=== PATIENT | male | born 1995 | race American Indian/Alaskan Native ===

== ENCOUNTER 2017-08-07 04:51 | Emergency (ER) | payer MEDICAID, OTHER ==
[2017-08-07 05:06] VITALS: RESP 18
[2017-08-07] MEDS ORDERED: TraMADol/Apap 37.5/325 mg Tab PO STA (05:29)
--- NOTE | 2017-08-07 05:31 | ED PDOC ---
Arrival/HPI - General Chief Complaint: Dental Pain Time Seen by Provider: 08/07/17 05:15 Historian: Patient - History of Present Illness Narrative History of Present Illness (Text): 08/07/17 05:28 Patient is a 21 year old male who presents to the Emergency department complaining of left-sided dental pain. Patient reports he is scheduled for a tooth extraction on 08/11/17 but yesterday morning his dental pain worsened making it difficult for him to close his mouth or sleep. Patient denies fevers, chills, shortness of breath, nausea, vomiting, diarrhea, headache, dizziness, back pain, neck pain, or any other complaint. Time/Duration: Other (Yesterday morning) Symptom Course: Worsening Quality: Aching Context: Home Past Medical History - Provider Review Nursing Documentation Reviewed: Yes - Psychiatric Hx Substance Use: No Family/Social History - Physician Review Nursing Documentation Reviewed: Yes Family/Social History: No Known Family HX Smoking Status: Never Smoked Hx Alcohol Use: No Hx Substance Use: No Allergies/Home Meds Allergies/Adverse Reactions: Allergies No Known Allergies Allergy (Verified 08/07/17 05:01) Review of Systems - Physician Review All systems were reviewed & negative as marked: Yes - Review of Systems Constitutional: absent: Fevers, Night Sweats ENT: Other (Left tooth pain) Respiratory: absent: SOB, Cough Cardiovascular: absent: Chest Pain, [place]STE[place] Gastrointestinal: absent: Abdominal Pain, Diarrhea, Nausea, Vomiting Musculoskeletal: absent: Back Pain, Neck Pain Physical Exam Vital Signs Reviewed: Yes Vital Signs Temp Pulse Resp BP Pulse Ox 08/07/17 06:09 97.6 F 58 L 18 120/58 L 98 08/07/17 05:02 97.8 F 56 L 18 124/62 97 Temperature: Afebrile Blood Pressure: Normal Pulse: Regular Respiratory Rate: Normal Appearance: Positive for: Well-Appearing Mental Status: Positive for: Alert and Oriented X 3 - Systems Exam Head: Present: Atraumatic, Normocephalic Pupils: Present: PERRL Extroacular Muscles: Present: EOMI Conjunctiva: Present: Normal Mouth: Present: Moist Mucous Membranes. No: Normal Teeth (Impacted left lower wisdom tooth) Neck: Present: Normal Range of Motion Respiratory/Chest: Present: Clear to Auscultation, Good Air Exchange. No: Respiratory Distress, Accessory Muscle Use Cardiovascular: Present: Regular Rate and Rhythm, Normal S1, S2. No: Murmurs Abdomen: No: Tenderness, Distention, Peritoneal Signs Back: Present: Normal Inspection Upper Extremity: Present: Normal Inspection. No: Cyanosis, Edema Lower Extremity: Present: Normal Inspection. No: Edema Neurological: Present: GCS=15, CN II-XII Intact, Speech Normal Skin: Present: Warm, Dry, Normal Color. No: Rashes Psychiatric: Present: Alert, Oriented x 3, Normal Insight, Normal Concentration Medical Decision Making ED Course and Treatment: 08/07/17 05:33 Impression: Patient is a 21 year old male with left tooth pain. Differential Diagnosis included but are not limited to: impacted left 3rd lower tooth. Plan: -- Ultracet -- Amoxil -- Reassess and disposition Progress Notes: - Medication Orders Current Medication Orders: Discontinued Medications Amoxicillin (Amoxil 500 Mg Cap) 500 mg PO STAT STA PRN Reason: Protocol Stop: 08/07/17 05:30 Last Admin: 08/07/17 05:43 Dose: 500 mg Tramadol/Acetaminophen (Ultracet 37.5/325 Mg) 1 tab PO ONCE STA Stop: 08/07/17 05:30 Last Admin: 08/07/17 05:45 Dose: 1 tab MAR Pain Assessment Document 08/07/17 05:45 VINNIE (Rec: 08/07/17 05:46 [id number]) Pain Reassessment Is this a pain reassessment? Yes Sleep Is patient sleeping during reassessment? No Presence of Pain Presence of Pain Yes Pain Scale Used Pain Scale Used Numeric Location Left, Right or Bilateral Left Upper or Lower Lower Description Description Constant Intensity of Pain at present 5 Pain Behavior Rubbing Site Aggravating Factors Contant - Scribe Statement The provider has reviewed the documentation as recorded by the Scribe Wade Stacy [employer] Under Kavitha Rios Provider Scribe Attestation: All medical record entries made by the Scribe were at my direction and personally dictated by me. I have reviewed the chart and agree that the record accurately reflects my personal performance of the history, physical exam, medical decision making, and the department course for this patient. I have also personally directed, reviewed, and agree with the discharge instructions and disposition. Disposition/Present on Arrival - Present on Arrival Any Indicators Present on Arrival: No History of DVT/PE: No History of Uncontrolled Diabetes: No Urinary Catheter: No History of Decub. Ulcer: No History Surgical Site Infection Following: None - Disposition Have Diagnosis and Disposition been Completed?: Yes Diagnosis: Pain, dental Disposition: HOME/ ROUTINE Disposition Time: 05:00 Condition: GOOD Discharge Instructions (ExitCare): Dental Pain (DC) Additional Instructions: call your dentist today Prescriptions: Amoxicillin 875 mg PO BID #14 tab Tramadol HCl [Ultram] 50 mg PO QID #6 tab Forms: [facility] (Kiswahili)
[2017-08-07 06:10] VITALS: BP 120/58; PULSE 58; TEMP 97.6; O2SAT 98
== END 2017-08-07 06:10 | disposition home or self-care (01) ==
LOC: ED 04:51
DX: K08.89 Other specified disorders of teeth and supporting structures (principal)